=== PATIENT | male | born 2005 | race Caucasian/White ===

== ENCOUNTER 2024-08-31 18:35 | Emergency (ER) | payer OTHER, SELFPAY ==
[2024-08-31 18:40] VITALS: BP 122/68; PULSE 94; RESP 22; TEMP 36.8; O2SAT 98; BMI 26.3
[2024-08-31 19:29] LABS: Influenza A - CEPHEID Flu A NEGATIVE (NEGATIVE); Influenza B - CEPHEID Flu B NEGATIVE (NEGATIVE); Respiratory Syncytial Virus Negative (Negative)
[2024-08-31 19:40] LABS: COVID-19 CEPHEID 4-PLEX PCR Negative (Negative)
--- NOTE | 2024-08-31 20:06 | PC.NURSE ---
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 Not taking OTC cold meds, take flonase and used albuteral MDI 2-3 days ago.
--- NOTE | 2024-08-31 21:21 | ED.URI ---
HPI - URI/Sore Throat General Chief Complaint: Upper Respiratory Symptoms Stated Complaint: SOB Time Seen by Provider: 08/31/24 21:13 Source: patient Mode of arrival: Ambulatory History of Present Illness HPI Narrative: Patient is a 19-year-old male history of asthma presenting today with upper respiratory symptoms. He reports that he has had off and on difficulty breathing. No significant fever or chills. Does not sound like it is a little bit of laryngitis no sore throat. No significant shortness of breath. He has been using albuterol as needed does not feel like he needs a treatment now. Related Data Allergies Allergy/AdvReac Type Severity Reaction Status Date / Time amphetamine [From Adderall] Allergy Nausea Verified 08/31/24 18:40 dextroamphetamine Allergy Nausea Verified 08/31/24 18:40 [From Adderall] Patient History Social History Smoking Status: Current every day smoker Smoking Status: Current every day smoker tobacco type: cigarettes and vaping Exam Initial Vital Signs Initial Vital Signs: Vital Signs Temperature 98.3 F 08/31/24 18:40 Pulse Rate 94 H 08/31/24 18:40 Respiratory Rate 22 08/31/24 18:40 Blood Pressure 122/68 08/31/24 18:40 Pulse Oximetry 98 08/31/24 18:40 Oxygen Delivery Method Room Air 08/31/24 18:40 GENERAL: Alert well-appearing 19-year-old male and in no acute distress. HEENT: Head atraumatic,EOMI, pupils reactive, face symmetric, moist mucous membranes CARDIOVASCULAR: Regular rate and rhythm without murmurs, rubs or gallops. RESPIRATORY: Breath sounds equal bilaterally, no wheezes rales or rhonchi. EXTREMITIES: Normal range of motion, no clubbing or edema. Neurovascularly intact NEUROLOGICAL: Alert and oriented x4.Normal gait and speech. Cranial nerves II through XII grossly intact. SKIN: Warm, dry, no laceration, no petechiae, no rashes or lesions. Course Orders Ordered: ED Orders 08/31/24 18:42 Covid-19 + FLU A/B + RSV - PCR Stat Vital Signs Vital signs: Vital Signs - 8 hr 08/31/24 21:31 Pulse Rate 90 Respiratory Rate 20 Blood Pressure 120/65 Pulse Oximetry 99 Oxygen Delivery Method Room Air MDM - URI/Sore Throat Lab Data Labs: Lab Results 08/31/24 Range/Units 18:42 SARS-CoV-2 (PCR) Negative (Negative) Influenza A (RT-PCR) Flu a negative (NEGATIVE) Influenza B (RT-PCR) Flu b negative (NEGATIVE) RSV (PCR) Negative (Negative) MDM Narrative Medical decision making narrative: Patient 19-year-old male with history of asthma presenting today with upper respiratory like symptoms. No fever or chills intermittent shortness of breath. He has no conversational dyspnea or wheezing lung sounds are clear. Offered albuterol over declined at this time. Respiratory panel negative. Suspect viral illness. No need for x-ray at this time. Recommend supportive care Discharge Plan Departure Patient Disposition: Home Clinical Impression: Upper respiratory infection Instructions: DI for Viral Upper Respiratory Infection -- Adult Activity Restrictions/Additional Instructions: *You have been diagnosed with upper respiratory infection *What to do: Increase activity as tolerated stay hydrated use albuterol as needed *Continue to take medications as directed Albuterol 1-2 puffs every 4 hours if needed *Follow up with your primary care provider in 2-3 days or call [phone] *Return to ER if you should have increasing shortness of breath fever or any new, worsening or concerning symptoms Stand Alone Forms: Patient Portal/API/Survey, Work Release Note
[2024-08-31 21:31] VITALS: BP 120/65; PULSE 90; RESP 20; O2SAT 99
== END 2024-08-31 21:32 | disposition home or self-care (01) ==
PROVIDERS: Emergency Provider Emergency Medicine
DX: J06.9 Acute upper respiratory infection, unspecified (principal); Z87.09 Personal history of other diseases of the respiratory system; F17.200 Nicotine dependence, unspecified, uncomplicated
CPT/HCPCS: 87635; 87400 ×2; 87420; 0241U; 99281; 99282